=== PATIENT | male | born 1960 | race Caucasian/White ===

== ENCOUNTER 2019-06-30 20:38 | Emergency (ER) | payer BC, OTHER ==
--- NOTE | 2019-06-30 21:36 | EDM.PDOC ---
ED HPI GENERAL MEDICAL PROBLEM - General Chief Complaint: General Stated Complaint: Blood in stool x 3 Time Seen by Provider: 06/30/19 21:19 Source of Information: Reports: Patient, Significant Other History Limitations: Reports: No Limitations - History of Present Illness INITIAL COMMENTS - FREE TEXT/NARRATIVE: Patient presents with bloody diarrhea. About 18 hours ago (0300) he had a large diarrhea, no blood; an hour or two later he had another. Then the third one had brights red blood in it and fourth episode had a large amount of thicker darker blood. The last one was an hour ago. Here in the ER he felt like he was about to have another but went in the bathroom and just had flatus and few speckles of red blood in the hat. He has a history of rectal fissures and hemorrhoids. Dr. Little has removed some internal hemorrhoids. No known history of polyps. No recent out of state travel or poorly cooked food. - Related Data Allergies Allergy/AdvReac Type Severity Reaction Status Date / Time propoxyphene HCl Allergy Cannot Verified 06/30/19 21:09 [From [facility]] Remember Home Meds: Home Meds Metoprolol Tartrate [Lopressor] 50 mg PO Q12HR #60 tab 06/30/14 [Rx] Lisinopril/Hydrochlorothiazide [Lisinopril-HCTZ 10-12.5 MG] 10 - 12.5 06/30/19 [ History] Past Medical History - Past Health History Medical/Surgical History: Denies Medical/Surgical History ED ROS GENERAL - Review of Systems Review Of Systems: See Below Constitutional: Denies: Fever, Chills, Malaise, Weakness HEENT: Reports: No Symptoms Respiratory: Denies: Shortness of Breath, Cough Cardiovascular: Denies: Chest Pain, Lightheadedness, Syncope Endocrine: Denies: Fatigue, Polydypsia, Polyuria GI/Abdominal: Reports: Abdominal Pain (cramping just before diarrhea episodes but not now), Diarrhea. Denies: Nausea, Vomiting : Denies: Dysuria, Flank Pain, Frequency, Hematuria Musculoskeletal: Denies: Neck Pain, Shoulder Pain, Arm Pain, Back Pain, Hand Pain Skin: Denies: Cyanosis, Jaundice, Mottled, Pallor, Diaphoresis Neurological: Denies: Confusion, Dizziness, Seizure, Syncope, Trouble Speaking, Difficulty Walking Psychiatric: Denies: Agitation, Anxiety, Confusion Hematologic/Lymphatic: Denies: Anemia, Easy Bleeding ED EXAM, GI/ABD - Physical Exam Exam: See Below Exam Limited By: No Limitations General Appearance: Alert, WD/WN, No Apparent Distress Eyes: Bilateral: Normal Appearance, EOMI Ears: Normal External Exam, Hearing Grossly Normal Nose: Normal Inspection, No Blood Throat/Mouth: Normal Inspection, Normal Lips, Normal Voice, No Airway Compromise Head: Atraumatic, Normocephalic Neck: Normal Inspection, Full Range of Motion Respiratory/Chest: No Respiratory Distress, Lungs Clear, Normal Breath Sounds, No Accessory Muscle Use Cardiovascular: Regular Rate, Rhythm, No Murmur GI/Abdominal Exam: Normal Bowel Sounds, Soft, Non-Tender, No Organomegaly, No Distention Rectal (Males) Exam: Normal Rectal Tone, Heme + Stool (from defecant), Hemorrhoids (thin, floppy external), Other (I just did an external inspection without ALICIA; no bleeding present). No: Black Stool, Bloody Stool, Rectal Fissure, Tenderness Back Exam: Normal Inspection, Full Range of Motion. No: CVA Tenderness (L), CVA Tenderness (R) Extremities: Normal Inspection, Normal Range of Motion Neurological: Alert, Oriented, Normal Cognition, No Motor/Sensory Deficits Psychiatric: Normal Affect, Normal Mood Skin Exam: Warm, Dry, Intact, Normal Color, No Rash Course - Vital Signs Last Recorded V/S: Last Vital Signs Temp 96.5 F 06/30/19 21:00 Pulse 65 06/30/19 21:00 Resp BP 149/73 H 06/30/19 21:00 Pulse Ox - Orders/Labs/Meds Labs: Laboratory Tests 06/30/19 06/30/19 Range/Units 09:15 09:15 WBC 9.33 (5.00-10.00) 10^3/uL RBC 4.78 (4.50-6.00) 10^6/uL Hgb 15.3 (13.0-17.0) g/dL Hct 42.5 (40.0-52.0) % MCV 88.9 (82.0-92.0) fL MCH 32.0 H (27.0-31.0) pg MCHC 36.0 (32.0-36.0) g/dL RDW 12.2 (11.5-14.5) % Plt Count 199 (150-400) 10^3/uL MPV 10.8 H (7.4-10.4) fL Immature Gran % (Auto) 0.2 (0.0-5.0) % Neut % (Auto) 69.6 (50.0-70.0) % Lymph % (Auto) 19.7 L (20.0-40.0) % [place] % (Auto) 7.0 (2.0-8.0) % Eos % (Auto) 3.1 H (1.0-3.0) % Baso % (Auto) 0.4 (0.0-1.0) % Immature Gran # (Auto) 0.02 (0.00-0.50) 10^3/uL Neut # (Auto) 6.49 (2.50-7.00) 10^3/uL Lymph # (Auto) 1.84 (1.00-4.00) 10^3/uL [place] # (Auto) 0.65 (0.10-0.80) 10^3/uL Eos # (Auto) 0.29 (0.10-0.30) 10^3/uL Baso # (Auto) 0.04 (0.00-0.10) 10^3/uL Sodium 140 (136-145) mmol/L Potassium 4.1 (3.3-5.3) mmol/L Chloride 103 (98-115) mmol/L Carbon Dioxide 26.3 (21.0-32.0) mmol/L Anion Gap 14.8 (5-15) mmol/L BUN 15 (6-25) mg/dL Creatinine 0.79 (0.51-1.17) mg/dL Est Cr Clr Drug Dosing 110.51 mL/min Estimated GFR (MDRD) > 60 mL/min Glucose 102 H (75 - 99) mg/dL Calcium 9.4 (8.7-10.3) mg/dL Total Bilirubin 1.1 H (0.2-1.0) mg/dL AST 17 (15-37) U/L ALT 31 (12-78) U/L Alkaline Phosphatase 61 (46-116) IU/L Total Protein 7.3 (6.4-8.2) g/dL Albumin 3.90 (3.00-4.80) g/dL - Re-Assessments/Exams Free Text/Narrative Re-Assessment/Exam: 06/30/19 22:27 Normal labs but positive stool hemoccult. 06/30/19 22:42 Discussed findings and treatment plan. The bleeding has significantly slowed or even stopped in the last couple of hours. We discussed that he will need a colonoscopy, either this weekend if the bleeding worsens or next week if available with PCP. Patient discharged to home in stable condition. Departure - Departure Time of Disposition: 22:37 Disposition: Home, Self-Care 01 Condition: Good Clinical Impression: Rectal bleed - Discharge Information Instructions: Rectal Bleeding, [id number] Forms: ED Department Discharge Additional Instructions: 1. Hold the aspirin and NSAIDS for now. 2. Drink 8 cups of water daily and adequate fiber to avoid constipation. 3. Follow up with your PCP on Tuesday or Tuesday for recheck and to discuss colonoscopy. 4. If bleeding worsens go to ER as discussed.
[2019-06-30 21:37] LABS: ANION GAP 14.8 mmol/L (5-15); CHLORIDE,CL 103 mmol/L (98-115); SODIUM,NA 140 mmol/L (136-145)
[2019-06-30 23:22] VITALS: BP 152/88; PULSE 78
== END 2019-06-30 22:55 | disposition home or self-care (01) ==
LOC: KA.ED 20:38
DX: K62.5 Hemorrhage of anus and rectum (principal); Z88.8 Allergy status to other drugs, medicaments and biological substances
CPT/HCPCS: 36415; 80053; 82270; 85025; 99283

== ENCOUNTER 2025-04-20 09:33 | Observation (INO) | payer MEDICARE, BC ==
[2025-04-20 09:49] LABS: BASOPHILS ABSOLUTE AUTO 0.04 10^3/uL (0.00-0.10); BASOPHILS PERCENT AUTO 0.6 % (0.0-1.0); EOSINOPHILS ABSOLUTE AUTO 0.35 10^3/uL (0.10-0.30); EOSINOPHILS PERCENT AUTO 5.6 % (1.0-3.0); IMMATURE GRAN ABSOLUTE AUTO 0.01 10^3/uL (0.00-0.04); IMMATURE GRAN PERCENT AUTO 0.2 % (0.0-0.4); LYMPHOCYTES ABSOLUTE AUTO 2.12 10^3/uL (1.00-4.00); LYMPHOCYTES PERCENT AUTO 34.2 % (20.0-40.0); MEAN PLATELET VOLUME 10.9 fL (7.4-10.4); MONOCYTES ABSOLUTE AUTO 0.50 10^3/uL (0.10-0.80); MONOCYTES PERCENT AUTO 8.1 % (2.0-8.0); NEUTROPHILS ABSOLUTE AUTO 3.18 10^3/uL (2.50-7.00); NEUTROPHILS PERCENT AUTO 51.3 % (50.0-70.0); PLATELET COUNT,PLT 186 10^3/uL (150-400); RED BLOOD CELL COUNT 5.24 10^6/uL (4.50-6.00); RED CELL DISTRIBUTION WIDTH 12.1 % (11.5-14.5); WHITE BLOOD CELL COUNT,WBC 6.20 10^3/uL (5.00-10.00)
[2025-04-20] MEDS: Ketorolac 30 MG/ML SDV IVPUSH ONE (10:02)
[2025-04-20 10:12] LABS: ALANINE AMINOTRANSFERASE,ALT 48 U/L (14-63); ASPARTATE AMNIOTRANSFERASE,AST 24 U/L (15-37); BILIRUBIN TOTAL 0.9 mg/dL (0.2-1.0); BLOOD UREA NITROGEN,BUN 10 mg/dL (7-18); CARBON DIOXIDE,CO2 26.1 mmol/L (21.0-32.0); CHLORIDE,CL 105 mmol/L (98-107); CREATININE 0.89 mg/dL (0.51-1.17); EST CRCL DRUG DOSING (CG) 90.82 mL/min; GLUCOSE RANDOM 123 mg/dL (70-140); POTASSIUM,K 3.6 mmol/L (3.5-5.1); PROTEIN TOTAL,TP 7.1 g/dL (6.4-8.2); SODIUM,NA 141 mmol/L (136-145)
[2025-04-20 10:14] LABS: ESTIMATED GFR 95 mL/min (>=60); INR 1.0 (0.9-1.1)
[2025-04-20] MEDS: methylPREDNISolone Sodium Succinate 125 MG/2 ML SDV IVPUSH ONE (10:39)
[2025-04-20] MEDS: Ondansetron 4 MG/2 ML SDV IVPUSH ONE (11:46)
[2025-04-20] MEDS ORDERED: Ondansetron 4 MG Tab.DIS PO PRN (15:09)
[2025-04-21 08:08] LABS: TSH ULTRASENSITIVE 0.747 uIU/mL (0.340-4.820)
[2025-04-21 12:41] VITALS: BP 144/82; PULSE 61
== END 2025-04-21 12:40 | disposition home or self-care (01) ==
LOC: KA.ED 09:33 → KA.MS 12:33
PROVIDERS: ADMIT Family Medicine; ATTEND Family Medicine
DX: R42 Dizziness and giddiness (principal); I10 Essential (primary) hypertension; I48.0 Paroxysmal atrial fibrillation; R00.1 Bradycardia, unspecified; E66.812 Obesity, class 2; Z88.8 Allergy status to other drugs, medicaments and biological substances; Z68.30 Body mass index [BMI] 30.0-30.9, adult; Z87.891 Personal history of nicotine dependence; Z79.899 Other long term (current) drug therapy
CPT/HCPCS: 36415; 70450; 71045; 80053; 83605; 83735; 83880; 84443; 84484; 85025; 85610; 86140; 93010; 94640; 96361; 96374; 96375; 99223-GT; 99239-GT; 99284; 99285-25; A9270-GY; G0378; J1885; J2405; J2919; J7030; Q3014